=== PATIENT | female | born 1980 | race Two or more races ===

== ENCOUNTER 2024-12-23 06:55 | Day surgery (SDC) | payer MEDICAID, SELFPAY ==
--- NOTE | 2024-12-22 10:20 | EKG_ITS ---
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
[2024-12-22 10:33] VITALS: BMI 31.1
[2024-12-22 11:17] LABS: Basophils # (Auto) 0.1 Thou/mm3 (0.0-0.2); Basophils % (Auto) 1 % (0-2.5); Eosinophils # (Auto) 0.1 Thou/mm3 (0.0-0.5); Eosinophils % (Auto) 1 % (0-10); Hemoglobin 13.8 g/dL (12.0-16.0); Immature Granulocytes % (Auto) 0 % (0-0); Immature Granulocytes Auto 0.02 Thou/mm3 (0.00-0.00); Lymphocytes # (Auto) 3.1 Thou/mm3 (1.0-4.8); Lymphocytes % (Auto) 37 % (10-50); Mean Corpuscular HGB Conc 35.4 g/dl (31.0-37.0); Mean Corpuscular Hemoglobin 31.2 pg (25.0-35.0); Mean Corpuscular Volume 88 fL (80-100); Monocytes # (Auto) 0.6 Thou/mm3 (0.0-0.8); Monocytes % (Auto) 7 % (0-12); Neutrophils # (Auto) 4.5 Thou/mm3 (1.8-7.7); Neutrophils % (Auto) 54 % (37-80); Nucleated Red Blood Cell % 0 /100 WBC (0); Platelet Count 282 Thou/mm3 (140-440); RDW Standard Deviation 40.3 fL (36.4-46.3); Red Blood Count 4.42 Miln/mm3 (4.00-5.20); White Blood Count 8.4 Thou/mm3 (3.6-11.0)
[2024-12-22 11:44] LABS: HCG,Qualitative Serum Negative
[2024-12-22 11:48] LABS: Alanine Aminotransferase 30 U/L (10-49); Albumin, Serum 4.6 gm/dL (3.5-5.0); Albumin/Globulin Ratio 1.6 (1.2-2.2); Alkaline Phosphatase 100 U/L (46-116); Anion Gap 9 (7-16); Aspartate Amino Transferase 19 U/L (0-34); BUN/Creatinine Ratio 18 Ratio (12-20); Bilirubin,Total 0.3 mg/dL (0.3-1.2); Blood Urea Nitrogen 11 mg/dL (9-23); Calcium 9.4 mg/dL (8.3-10.6); Calcium (Corrected) 9.4 mg/dL (8.5-10.1); Carbon Dioxide 22.3 mMol/L (20.0-31.0); Chloride 104 mMol/L (98-107); Creatinine (Component) 0.6 mg/dL (0.6-1.3); Estimated Creatinine Clearance 110.7 mL/min (>60); Globulin 2.8 gm/dL (2.3-3.5); Glucose 261 mg/dL (74-106); Osmolality,Calculated 278 (275-295); Sodium 135 mMol/L (136-145); Total Protein 7.4 gm/dL (5.7-8.2); eGFR > 60 See Note
[2024-12-22 11:56] LABS: INR 0.9 (0.9-1.3); Partial Thromboplastin Time 25.1 Seconds (22.0-36.0); Prothrombin Time 9.9 Seconds (9.0-12.2)
--- NOTE | 2024-12-22 14:54 | SUR.PREOP ---
Pt notified to come in at 0700 tomorrow for surgery.
[2024-12-23] VITALS (10 sets, daily range): BP systolic 91–134; BP diastolic 51–89; PULSE 98–110; RESP 16–22; TEMP 36.1–37.1; O2SAT 95–100; BMI 31.2
--- NOTE | 2024-12-23 07:40 | SUR.PREOP ---
Patient expressed gratitude for prayer before their procedure.
--- NOTE | 2024-12-23 09:14 | SUR.PHASEI ---
pt received from OR in recovery bay 5. pt obtunded, breathing unlabored on nc 10, lma in place. v/s stable. pt dressing to right knee cdi. report received from Jenae CAREY and Gilmar HERNADEZ.
[2024-12-23] MEDS: fentaNYL CIT INJ 50 mCg/ML AMP 2ML IV (09:29)
[2024-12-23] MEDS: ACETAMINOPHEN IVPB 1,000 MG/100 ML VIAL 250 MG IV (09:31)
--- NOTE | 2024-12-23 09:31 | PD.SUROPNT ---
Date of Procedure 12/23/24 Pre Op Diagnosis 1. Torn medial meniscus 2. Complex tear of the lateral meniscus 3 degenerative joint disease changes 4. Synovitis with medial plica Post Op Diagnosis Same Procedure 1. Partial medial meniscectomy 2 partial lateral meniscectomy 3 chondroplasty 4. Partial synovectomy including excision plica Findings Refer dictation Procedure Description The patient was given general endotracheal anesthesia. Once satisfactory anesthesia was achieved, tourniquet was placed on right t upper thigh. Following that the part was thoroughly prepped and draped. After using Esmarch the tourniquet pressure was raised to 350 mmHg. A skin incision was made proximal to lateral tibial plateau and arthroscope was introduced in the usual fashion. Another a skin incision was made in suprapatellar pouch area and outlet was established. The findings were noted as below. In suprapatellar pouch area significant synovial tissue inflammation was present. Medial plica was present as well. The undersurface of patella showed grade 4 chondromalacia. The anterior femoral condyle showed grade 3 chondromalacia. Soft tissue impingement was present. The patellar tracking was checked and found to be good. The medial compartment showed grade 3/4 chondromalacia for medial tibial plateau and medial femoral condyle. The medial meniscus showed degeneration and tear of the anterior horn and body Another skin incision was made proximal to medial tibial plateau and a probe was introduced and findings were confirmed. The anterior cruciate ligament was partially torn.. The anterior drawer test was performed and found to be good. The lateral compartment showed grade IV chondromalacia of lateral femoral condyle and tibial plateau. Almost all of the lateral tibial plateau surface was affected. Lateral meniscus showed degeneration and complex tear basket was introduced and torn part of the body and anterior horn of lateral meniscus was excised. Following that it was shaved again. Of the body and anterior horn. A shaver was introduced and shaving of the anterior horn of medial meniscus was performed. Soft tissue impingement was shaved off. Chondroplasty of the medial femoral condyle and medial tibial plateau was performed. With the help of a basket the torn part of the body and anterior horn of lateral meniscus was excised. The shaving of the body and anterior horn of lateral meniscus was done. The chondroplasty of the lateral tibial plateau and lateral femoral condyle was also performed. The chondroplasty of the patella and and anterior femoral condyle was performed. The soft tissue impingement was shaved off. A partial synovectomy including excision of plica was performed. Copious amount of irrigation was used to irrigate the knee joint. All the debris were removed. 3-0 Prolene was used to close the wound. About 20 mL of quarter percent Marcaine along with 10 mg of Duramorph was injected. Patient tolerated procedure well. Estimated blood loss was about 5 mL. Prognosis in this case is guarded. Because of significant chondromalacia patient may continue having short and or long-term pain. If the pain is unbearable patient may be a candidate for knee replacement and patient is fully aware of that. Patient was taken to the recovery room in good condition. Anesthesia GETA Pathology / specimen None Estimated Blood Loss 1 Surgeon Anish Plaza MD Surgical Staff Operation Date: 12/23/24 09:00 Case Staff PAPIER MACHE MOLDER: Gorge Wang
[2024-12-23] MEDS: ONDANSETRON INJ 2 MG/ML INJ 2 ML 4 MG IV (09:50)
--- NOTE | 2024-12-23 10:01 | SUR.PHASEII ---
pt able to tolerate oral fluids without difficulty swallowing or nausea/vomiting.
[2024-12-23] MEDS: METOCLOPRAMIDE INJ 5 MG/ML VIAL 2 ML 10 MG IVP (10:28)
--- NOTE | 2024-12-23 10:47 | ESHP_ITS ---
RE: SANTO DEXTER : 1980 DATE OF ADMISSION: 12/23/2024 HISTORY OF PRESENT ILLNESS: The patient came to my office on 12/22/2024 for detailed preop history and physical examination. HISTORY OF PRESENTING COMPLAINT: The patient presented to me earlier with a history of pain, swelling, clicking, and locking of the right knee joint. The patient has stated that she fell in early 07/2024. Her right leg got stuck and that is what happened. Subsequent to that, the patient was followed. X-ray and MRI scan was obtained. It revealed undisplaced tibial plateau fracture, but it also showed degeneration and complex tear of the lateral meniscus and also tear of the medial meniscus. The patient continued to be having symptoms. It was interfering with the routine daily activities. Activities of daily living and quality of life is affected. The intensity of the pain is rated 8 to 9/10. The patient was unable to sleep. Accordingly, decision was made to do arthroscopic procedure. PAST MEDICAL HISTORY: No history of diabetes mellitus or high blood pressure, asthma, seizure, chest pain, myocardial infarction, breathing disorder. PAST SURGICAL HISTORY: Nil. DRUG HISTORY: The patient takes; 1. Albuterol. 2. Atorvastatin. 3. Calcitriol. 4. Levothyroxine. 5. Losartan. 6. Metformin. ALLERGIES: NIL KNOWN. FAMILY HISTORY AND SOCIAL HISTORY: Noncontributory in this case. PHYSICAL EXAMINATION: GENERAL: Normal built lady. VITAL SIGNS: Pulse 88 per minute, blood pressure 126/76. NECK: Soft, supple, no masses felt. Trachea is centrally placed. CARDIOVASCULAR SYSTEM: First and second hearts are normal. No murmur heard. LUNGS: Bilateral vesicular breath sounds. CHEST: Clear. ABDOMEN: Soft. No masses felt. Bowel sounds present. EXTREMITIES: Right knee examination reveals 1+ swelling and 2+ tenderness. Active range of motion 0 to 120 degrees of flexion. Agustin's test is positive. Drop test and Logan's test were negative. DIAGNOSTIC DATA: MRI scan confirmed torn meniscus. It also showed degenerative joint diseases changes at the lateral tibial plateau. ASSESSMENT AND PLAN: Since the patient is symptomatic therefore, right knee arthroscopy with partial meniscectomy and chondroplasty was discussed and advised. Risks of the procedure was explained and that includes, but not limited to reaction to anesthetic agents, cardiac arrest, and rarely it might be fatal. Risk with outpatient include infection and if that happens, the patient may need further surgical procedure. Other risks include delayed healing, wound dehiscence, etc. No guarantees given regarding outcome of the procedure and/or relief of symptoms. Appropriate lab work is being done. Apparently surgery is booked for 12/23/2024. DT: 09:41:14 TT: 10:44:00 Ref: [id number] - TID: [id number]
--- NOTE | 2024-12-23 11:05 | SUR.PHASEII ---
pt awake and alert, breathing unlabored on room air. v/s stable. pt dressing to right knee cdi. pt able to transfer to wheelchair with steady gait. d/c instructions given with Ren in room using cullet washer Zainab [id number], all questions answered. pt d/c via wheelchair with all belongings.
== END 2024-12-23 11:05 | disposition home or self-care (01) ==
PROVIDERS: Anesthesiology; PCP Internal Medicine; Referring Provider Orthopaedic Surgery; Visit Provider Orthopaedic Surgery
PROC: (CPT 29870; principal; 2024-12-23 08:45)
DX: S83.241A Other tear of medial meniscus, current injury, right knee, initial encounter (principal); M65.90 Unspecified synovitis and tenosynovitis, unspecified site; S83.281A Other tear of lateral meniscus, current injury, right knee, initial encounter; Z01.810 Encounter for preprocedural cardiovascular examination
CPT/HCPCS: 29875; 29880; 36415; 80048; 80053; 84703; 85025; 85610; 85730; 93005; A4217; A4649; J0131; J0690; J1885; J2250; J2274; J2405; J2704; J2765; J3010; J3490; J0665; J2270

== ENCOUNTER → 2025-08-16 | Outpatient (CLI) | payer MEDICAID, SELFPAY ==
--- NOTE | 2025-08-16 | XR_ITS ---
EXAMINATION: Right knee 2 views TECHNIQUE: AP lateral right knee 2 views Date and time: August 16, 2025, 1134 hours INDICATIONS: Right knee pain beginning 1 year ago FINDINGS: Moderate tricompartment osteoarthritis, most severe lateral joint space Moderate knee effusion No fracture Moderate osteopenia IMPRESSION: Moderate tricompartment osteoarthritis
== END | disposition home or self-care (01) ==
PROVIDERS: PCP Orthopaedic Surgery; Referring Provider Orthopaedic Surgery; Visit Provider Orthopaedic Surgery
DX: M17.11 Unilateral primary osteoarthritis, right knee (principal)
CPT/HCPCS: 73560